=== PATIENT | female | born 1955 | race Caucasian/White ===

== ENCOUNTER 2017-08-10 21:11 | Inpatient (IN) | payer MEDICAID ==
[~2017-08-10] VITALS: Ht 165.1 cm; Wt 75.7 kg
[2017-08-10 22:21] LABS: PLATELET COUNT 368 x10^3mcL (130-400); RED CELL DISTRIBUTION WIDTH 14.2 % (11.5-14.5)
[2017-08-10 22:32] LABS: CALCIUM 8.2 mg/dL (8.5-10.1); CARBON DIOXIDE 24.6 mmol/L (21-32); CREATININE SERUM 1.3 mg/dL (0.6-1.0); POTASSIUM SERUM 3.5 mmol/L (3.5-5.1)
[2017-08-10 22:50] LABS: BAND NEUTROPHIL 2 % (0-10); MONOCYTE 4 % (0-7); SEGMENTED NEUTROPHILS 86 % (37-75)
[2017-08-10 22:51] LABS: BILIRUBIN TOTAL 0.3 mg/dL (0.20-1.00); TOTAL PROTEIN, SERUM 7.6 g/dL (6.4-8.2)
[2017-08-10 22:58] LABS: ALBUMIN 2.5 g/dL (3.4-5.0)
[2017-08-10 23:04] LABS: PLATELET MORPHOLOGY PLATELETS NORMAL; rbc morphology (normal/abnorm) NORMAL (NORMAL)
[2017-08-11] MEDS ORDERED: IBUPROFEN400 MG PO (00:32)
[2017-08-11] MEDS ORDERED: JANUVIA100 M1 PO (00:33)
[2017-08-11] MEDS ORDERED: METFORMIN HYDR500 M1 PO (00:33)
[2017-08-11 01:24] VITALS: BP 125/62
[2017-08-11 01:53] LABS: MAGNESIUM 2.1 mg/dL (1.8-2.4); PHOSPHOROUS 3.5 mg/dL (2.5-4.9)
[2017-08-11 02:07] LABS: CHOLESTEROL/HDL RATIO 3.3
[2017-08-11 02:18] LABS: FREE T4 1.78 ng/dL (0.76-1.46); FREE THYROXINE INDEX 4.1 ug/dL (1.4-4.5)
[2017-08-11 02:58] LABS: IRON 22 ug/dL (50-170); TOTAL IRON BINDING CAPACITY 209 ug/dL (250-450)
[2017-08-11 03:22] LABS: T3 TOTAL 0.52 ng/mL
[2017-08-11 04:27] LABS: microscopic required? YES; urine erythrocyte 1+ (NEGATIVE)
[2017-08-11 04:37] LABS: AMPHETAMINE QUAL UR NONE DETECTED (NEG <=1000)
[2017-08-11 05:31] VITALS: BP 119/69
[2017-08-11 10:22] LABS: CALCIUM 8.2 mg/dL (8.5-10.1); CARBON DIOXIDE 26.8 mmol/L (21-32); CHLORIDE SERUM 95 mmol/L (98-107); CREATININE SERUM 0.9 mg/dL (0.6-1.0); GFR1 > 60 mL/min; GLUCOSE SERUM 284 mg/dL (74-106); MAGNESIUM 1.9 mg/dL (1.8-2.4); PHOSPHOROUS 2.4 mg/dL (2.5-4.9); POTASSIUM SERUM 3.4 mmol/L (3.5-5.1); SODIUM SERUM 131 mmol/L (136-145)
[2017-08-11] MEDS ORDERED: FELODIPINE5 M1 PO (10:32)
[2017-08-11] MEDS ORDERED: ATACAND32 MG PO (10:33)
[2017-08-11 10:36] LABS: BASOPHIL % 0 % (0-2); PLATELET COUNT 377 x10^3mcL (130-400); RED CELL DISTRIBUTION WIDTH 14.6 % (11.5-14.5)
[2017-08-11 11:11] VITALS: BP 110/66
[2017-08-11 15:44] VITALS: BP 130/69
[2017-08-11 18:23] LABS: RED BLOOD CELLS 3.54 M/mm3 (4.10-5.10)
[2017-08-11 18:56] VITALS: BP 127/71
[2017-08-11 20:33] VITALS: BP 131/79
[2017-08-12 05:51] VITALS: BP 138/85
[2017-08-12 08:04] LABS: CALCIUM 7.8 mg/dL (8.5-10.1); CARBON DIOXIDE 26.5 mmol/L (21-32); CHLORIDE SERUM 98 mmol/L (98-107); CREATININE SERUM 0.7 mg/dL (0.6-1.0); GFR1 > 60 mL/min; GLUCOSE SERUM 219 mg/dL (74-106); PHOSPHOROUS 3.1 mg/dL (2.5-4.9); POTASSIUM SERUM 3.8 mmol/L (3.5-5.1); SODIUM SERUM 134 mmol/L (136-145)
[2017-08-12 08:23] LABS: BASOPHIL % 1.7 % (0-2); PLATELET COUNT 377 x10^3mcL (130-400); RED CELL DISTRIBUTION WIDTH 14.4 % (11.5-14.5)
[2017-08-12 08:55] VITALS: BP 147/85
[2017-08-12 12:32] VITALS: BP 138/83
[2017-08-12 15:59] VITALS: Ht 165.1 cm; Wt 75.7 kg
[2017-08-12 16:15] VITALS: BP 148/86
[2017-08-12 21:55] VITALS: BP 140/81
[2017-08-13 06:49] VITALS: BP 132/76
[2017-08-13 07:19] LABS: BASOPHIL % 0.2 % (0-2); RED CELL DISTRIBUTION WIDTH 14.4 % (11.5-14.5)
[2017-08-13 07:27] LABS: CALCIUM 8.3 mg/dL (8.5-10.1); CARBON DIOXIDE 26.9 mmol/L (21-32); CHLORIDE SERUM 95 mmol/L (98-107); CREATININE SERUM 0.7 mg/dL (0.6-1.0); GFR1 > 60 mL/min; GLUCOSE SERUM 190 mg/dL (74-106); MAGNESIUM 1.5 mg/dL (1.8-2.4); PHOSPHOROUS 3.1 mg/dL (2.5-4.9); POTASSIUM SERUM 3.6 mmol/L (3.5-5.1); SODIUM SERUM 131 mmol/L (136-145)
[2017-08-13 08:35] LABS: PLATELET COUNT 441 x10^3mcL (130-400)
[2017-08-13 11:17] VITALS: BP 132/76
[2017-08-13 12:01] VITALS: BP 135/86
[2017-08-13] MEDS ORDERED: ECO81 PO (13:47)
[2017-08-13] MEDS ORDERED: LIPI10 PO (13:47)
[2017-08-13] MEDS ORDERED: LAC PO (13:47)
[2017-08-13] MEDS ORDERED: CLEOCIN HCL300 MG PO (13:48)
[2017-08-13] MEDS ORDERED: METFORMIN HCL1000 MG PO (13:48)
[2017-08-13 14:26] VITALS: BP 145/86
== END 2017-08-13 15:06 | disposition home or self-care (01) | DRG 383 ==
LOC: ED 21:11 → DU 08-11 00:26
PROVIDERS: Emergency Medicine; Family Medicine Sports Medicine
DX: L03.116 Cellulitis of left lower limb (principal); N17.0 Acute kidney failure with tubular necrosis; E43 Unspecified severe protein-calorie malnutrition; D68.69 Other thrombophilia; E11.51 Type 2 diabetes mellitus with diabetic peripheral angiopathy without gangrene; E11.65 Type 2 diabetes mellitus with hyperglycemia; E87.1 Hypo-osmolality and hyponatremia; I82.812 Embolism and thrombosis of superficial veins of left lower extremity; I10 Essential (primary) hypertension; D64.9 Anemia, unspecified; Z68.27 Body mass index [BMI] 27.0-27.9, adult; Z79.84 Long term (current) use of oral hypoglycemic drugs
CPT/HCPCS: 82962; 83880; 84439; 90658; 90732; J1644; J1956; J3490; J7030; Q0092